=== PATIENT | female | born 1970 | race Caucasian/White ===

== ENCOUNTER 2017-07-03 21:11 | Emergency (ER) | payer OTHER ==
[~2017-07-03] VITALS: Ht 165.1 cm; Wt 101.1 kg
[~2017-07-03 21:11] MED LIST: ADVAIR 250/501 DISK IH; AVENTYL,PAMELOR50 MG PO; CLARITIN10 M3 PO; FIORICET,ESG1 TABLET PO; HYDROCHLOROTHIA25 MG PO; IMITREX50 MG PO; VERAPAMIL SR120 MG PO
[2017-07-03 23:38] VITALS: BP 150/98
== END 2017-07-03 23:39 | disposition home or self-care (01) ==
LOC: EXP 21:11 → EME 21:11 → EXP 23:39
DX: S16.1XXA Strain of muscle, fascia and tendon at neck level, initial encounter (principal); V49.40XA Driver injured in collision with unspecified motor vehicles in traffic accident, initial encounter; Z98.1 Arthrodesis status; I10 Essential (primary) hypertension; J45.909 Unspecified asthma, uncomplicated; Z87.891 Personal history of nicotine dependence
CPT/HCPCS: 72040; 99281; 99283

== ENCOUNTER 2017-07-27 22:39 | Emergency (ER) | payer OTHER ==
[~2017-07-27] VITALS: Ht 165.1 cm; Wt 100.2 kg
[2017-07-27 23:26] LABS: HEMATOCRIT 39.7 % (36.0-46.0); MCH 29.4 PG (29.0-34.0); MCHC 31.7 G/DL (30.0-36.0); MCV 92.5 FL (83-99); MEAN PLAT.VOLUME 9.7 uM^3 (9.5-12.4); PLATELET COUNT 267 K/uL (156-360); RBC DIS.WIDTH-CV 13.2 % (11.8-14.6); RBC DIS.WIDTH-SD 45.1 % (39-53); RED BLOOD COUNT 4.29 M/uL (3.80-5.20); WHITE BLOOD COUNT 10.4 K/uL (4.1-10.2)
[2017-07-27 23:40] LABS: CHLORIDE 107 mEq/L (99-109); POTASSIUM 4.1 mEq/L (3.7-5.4); SODIUM 140 mEq/L (136-147)
[2017-07-27 23:42] LABS: GLUCOSE 77 mg/dL (70-99)
[2017-07-27 23:43] LABS: ANION GAP 11 MEQ/L (2-14)
[2017-07-27 23:46] LABS: GFR ESTIMATE (CALCULATED) > 59 mL/min/
[2017-07-27 23:47] LABS: UREA NITROGEN (BUN) 12 mg/dL (9-23)
[2017-07-27] MEDS ORDERED: ALBUTEROL2.5 MG/3 M IH (23:55)
[2017-07-27] MEDS ORDERED: PREDNISONE20 MG PO (23:55)
[2017-07-27] MEDS ORDERED: ZITHROMAX Z-PA250 MG PO (23:55)
[2017-07-28 00:43] VITALS: BP 143/86
== END 2017-07-28 00:44 | disposition home or self-care (01) ==
LOC: EXP 22:39 → EME 22:39 → EXP 07-28 00:44
DX: J06.9 Acute upper respiratory infection, unspecified (principal); J45.21 Mild intermittent asthma with (acute) exacerbation; I10 Essential (primary) hypertension; Z98.84 Bariatric surgery status; Z87.891 Personal history of nicotine dependence
CPT/HCPCS: 71020; 80048; 85027; 94640; 99281; 99284